=== PATIENT | male | born 1955 | race Caucasian/White ===

== ENCOUNTER 2017-03-06 11:39 | Emergency (ER) | payer BC ==
[2017-03-06] MEDS ORDERED: Ondansetron ODT 4 MG TAB ONE (11:53)
[2017-03-06] MEDS ORDERED: Adacel (T-DAP) 0.5 ML VIAL ONE (11:53)
[2017-03-06] MEDS ORDERED: Bacitracin Zinc 1 Packet ONE (12:22)
[2017-03-06] MEDS ORDERED: HYDROcodone/Acetaminophen 5/325 mg Tablet ONE (12:33)
--- NOTE | 2017-03-06 23:30 | RAD ---
RIGHT FIFTH FINGER: 03/06/2017 FINDINGS: Three views show no fracture, dislocation, or acute bony change. There is some minor bony spurring in the PIP joint. IMPRESSION: No acute findings. POS: HOME
== END 2017-03-06 12:35 | disposition home or self-care (01) ==
LOC: BURERS 11:39
DX: S61.206A Unspecified open wound of right little finger without damage to nail, initial encounter (principal); I10 Essential (primary) hypertension; Z79.899 Other long term (current) drug therapy; W23.0XXA Caught, crushed, jammed, or pinched between moving objects, initial encounter
CPT/HCPCS: 90471; 90715; Q0162

== ENCOUNTER 2019-10-16 07:45 | Emergency (ER) | payer BC ==
[2019-10-16] MEDS ORDERED: Ketorolac Tromethamine 30 MG/ML VIAL ONE (08:04)
[2019-10-16] MEDS ORDERED: Cyclobenzaprine 10 MG TAB ONE (08:04)
== END 2019-10-16 08:36 | disposition home or self-care (01) ==
LOC: BURERS 07:45
DX: M62.830 Muscle spasm of back (principal); I10 Essential (primary) hypertension; F17.290 Nicotine dependence, other tobacco product, uncomplicated; X50.0XXA Overexertion from strenuous movement or load, initial encounter
CPT/HCPCS: 96372; 99283; J1885